=== PATIENT | male | born 1955 | race Caucasian/White ===

== ENCOUNTER 2017-04-06 07:45 | Day surgery (SDC) | payer OTHER ==
[~2017-04-06] VITALS: Ht 167.6 cm; Wt 85.7 kg
[~2017-04-06 07:45] MED LIST: ADULT LOW DOSE81 MG PO; COLACE100 MG PO; NORCO 5-325 TA1 EACH PO; PERCOCET 5-3251 EACH PO; PROBIOTIC1 EAC1 PO; ZANTAC150 MG PO
--- NOTE | 2017-04-06 09:26 | NUR ---
04/06/17 0926 Yesi Vázquez 0918: PT ARRIVED TO PACU ON AT 6L VIA MASK. PT SNORING LOUDLY, REPSONDS TO VOICE AND TOUCH.
--- NOTE | 2017-04-15 08:29 | OR ---
[facility] [address] [place], [place] [address] Signed DATE OF OPERATION: 04/06/2017 SURGEON: Priscilla Fielsd MD PREOPERATIVE DIAGNOSIS: Screening. POSTOPERATIVE DIAGNOSES: 1. A 3 mm rectal polyps x3. 2. Minimal sigmoid diverticulosis. 3. Internal and external hemorrhoids. PROCEDURE: Colonoscopy with hot biopsy. ESTIMATED BLOOD LOSS: None. INDICATIONS: Ange is a 61-year-old gentleman, asked to see me for his initial screening colonoscopy. He said he has no lower GI complaints and there is no family history of colon cancer or polyps. I gave him a pamphlet on colonoscopy in the office and we reviewed that together. He understands the nature of the test along with the risks including, but not limited to, gas bloating, crampy abdominal pain, bleeding, perforation, requiring surgery, and missed diagnosis. He also understands the need for IV conscious sedation. However, given his daily alcohol intake, we asked that an anesthesia provider help us with increased monitoring and sedation with propofol. That proved to be a white decision. PROCEDURE NOTE: Ange was taken into our endoscopy suite and placed in the left lateral decubitus position. He was given IV sedation with propofol per our nurse shield operator. Digital rectal exam was performed and this showed some beefy external hemorrhoids consistent with his bleeding at the end of his bowel prep. The adult colonoscope was introduced and advanced all around into the cecum under direct visualization of the camera without difficulty. The prep was good. The scope was slowly withdrawn. He had several tiny polyps in the rectum that we removed with hot biopsy forceps. He also had a few tiny diverticula in the sigmoid colon. Upon retroflexion of the scope, he has some very small internal hemorrhoid tissue. After this, the gas was suctioned out and the colonoscope removed. Ange tolerated the procedure quite well. Electronically Signed By: PRISCILLA FIELDS MD 04/15/17 0829 PATIENT NAME: ANGE ARCEO OPERATIVE REPORT DATE OF : 57 REPORT #: [id number] PHYSICIAN: PRISCILLA FIELDS MD PCP: LITA HOOD NP REPORT IS CONFIDENTIAL AND NOT TO BE RELEASED WITHOUT AUTHORIZATION [address] [address] Signed RECOMMENDATIONS: I will see Ange back in my office in 7 to 14 days to review his results. MD SB Reyes/ANTHONYL /[id number] cc: MD Lita Reyes NP Copies: PRISCILLA FIELDS MD, IRENE B NP ~ Electronically Signed By: PRISCILLA FIELDS MD 04/15/17 0829 PATIENT NAME: ANGE ARCEO WHITSETT OPERATIVE REPORT DATE OF : 57 REPORT #: [id number] PHYSICIAN: PRISCILLA FIELDS MD PCP: LITA HOOD NP REPORT IS CONFIDENTIAL AND NOT TO BE RELEASED WITHOUT AUTHORIZATION
== END 2017-04-06 09:50 | disposition home or self-care (01) ==
LOC: OPS 07:45 → DS 08:45 → OPS 08:45
PROVIDERS: Colon & Rectal Surgery
PROC: 0DBP8ZX Excision of Rectum, Via Natural or Artificial Opening Endoscopic, Diagnostic (ICD-10-PCS; principal; 2017-04-06 08:45)
DX: Z12.11 Encounter for screening for malignant neoplasm of colon (principal); K62.1 Rectal polyp; K57.30 Diverticulosis of large intestine without perforation or abscess without bleeding; K64.4 Residual hemorrhoidal skin tags; K64.8 Other hemorrhoids; K21.9 Gastro-esophageal reflux disease without esophagitis; H91.90 Unspecified hearing loss, unspecified ear; M19.90 Unspecified osteoarthritis, unspecified site; F17.210 Nicotine dependence, cigarettes, uncomplicated; J44.9 Chronic obstructive pulmonary disease, unspecified; Z98.890 Other specified postprocedural states; Z79.82 Long term (current) use of aspirin; Z79.899 Other long term (current) drug therapy
CPT/HCPCS: 88305; J2250; J2704; J3010; J7120